=== PATIENT | female | born 1955 | race Caucasian/White ===

== ENCOUNTER → 2016-05-16 | Outpatient (CLI) | payer OTHER ==
--- NOTE | 2016-05-18 08:26 | Diagnostic Imaging Report ---
Bilateral screening mammogram. The current study was also evaluated with a Computer Aided Detection (CAD) system. INDICATION: Screening. No current complaints stated on the questionnaire. COMPARISON: 10/27/2014. FINDINGS: The breast parenchyma demonstrates scattered fibroglandular densities. There is a 6-mm focal asymmetry oval in shape in the lateral aspect of the right breast that appears slightly more prominent compared to prior exams. The left breast demonstrates no definite change. IMPRESSION: Focal compression view and ultrasound evaluation for lateral right breast 6-mm focal asymmetry is recommended. ACR BI-RADS Category 0: Incomplete. (Needs additional imaging evaluation). Result letter will be mailed to the patient. Note: At least 10% of breast cancer is not imaged by mammography. Dictated by: Dictated on workstation # [id number]
== END ==
LOC: RAD 09:25
PROVIDERS: ATTEND Nurse Practitioner Family
DX: Z12.31 Encounter for screening mammogram for malignant neoplasm of breast (principal)
CPT/HCPCS: 77067

== ENCOUNTER → 2016-06-05 | Outpatient (CLI) | payer OTHER ==
--- NOTE | 2016-06-05 16:11 | Diagnostic Imaging Report ---
EXAMINATION: Right breast diagnostic mammogram with a Computer Aided Detection (CAD) system. FINDINGS: There is a 4 mm nodule in the lateral aspect of the right breast confirmed with focal compression view with smooth margins. This is favored to be benign. IMPRESSION: Persistent rounded focal asymmetry measuring 4 mm in the lateral aspect of the right breast. The ultrasound evaluation is pending. ACR BI-RADS Category 0: Incomplete. (Needs additional imaging evaluation). Result letter will be mailed to the patient. Note: At least 10% of breast cancer is not imaged by mammography. Dictated by: Dictated on workstation # [id number]
--- NOTE | 2016-06-05 16:14 | Diagnostic Imaging Report ---
EXAMINATION: Breast ultrasound. INDICATION: Focal asymmetry along the outer aspect of the right breast. FINDINGS: At the 10 o'clock zone 3 cm from the nipple, there is a focal asymmetry in the lateral aspect of the right breast. IMPRESSION: This is a simple cyst at the 10 o'clock zone 3 cm from the nipple measuring 4 mm. This matches the location and size of the abnormality seen on mammography. No other lesion is identified in the four-quadrants and retroareolar region of the right breast. IMPRESSION: 4 mm simple cyst corresponding the location and size of the mammographic abnormality. Recommendation to return to annual screening. BI-RADS 2. Dictated by: Dictated on workstation # [id number]
== END ==
LOC: RAD 08:48
PROVIDERS: ATTEND Nurse Practitioner Family
DX: N60.01 Solitary cyst of right breast (principal)
CPT/HCPCS: 76641

== ENCOUNTER → 2018-05-01 | Outpatient (CLI) | payer OTHER ==
--- NOTE | 2018-05-02 18:58 | Diagnostic Imaging Report ---
INDICATION: Routine screening. Correlation is made with prior mammograms from 05/16/2016 and 10/27/2014. 2-D and 3-D bilateral screening mammography was performed with Computer-Aided Detection (CAD) system. FINDINGS: Scattered fibroglandular densities are identified bilaterally. Circumscribed density in the upper-outer right breast mid depth appears stable. No new mass or malignant-appearing microcalcifications are seen. There are benign calcifications present. The axillae are unremarkable. IMPRESSION: No mammographic features suspicious for malignancy are identified. ACR BI-RADS Category 2: Benign findings. Result letter will be mailed to the patient. Note: At least 10% of breast cancer is not imaged by mammography. Dictated on workstation # [id number]
== END ==
LOC: RAD 14:20
PROVIDERS: ATTEND Nurse Practitioner Family
DX: Z12.31 Encounter for screening mammogram for malignant neoplasm of breast (principal)
CPT/HCPCS: 77067

== ENCOUNTER → 2022-06-27 | Outpatient (CLI) | payer MEDICARE ==
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
== END ==
LOC: RAD 08:01
PROVIDERS: ATTEND Nurse Practitioner Family
DX: M47.24 Other spondylosis with radiculopathy, thoracic region (principal); M51.14 Intervertebral disc disorders with radiculopathy, thoracic region; M48.04 Spinal stenosis, thoracic region
CPT/HCPCS: 72146